=== PATIENT | male | born 1945 | race Caucasian/White ===

== ENCOUNTER → 2018-10-19 | Outpatient (CLI) | payer OTHER ==
[~2018-10-19] VITALS: Ht 152.4 cm; Wt 91.4 kg
[~2018-10-19] MED LIST: ALEVE220 MG PO; ASPIRIN325 PO; CENTRUM SILVER1 EAC2 PO; PRESERVISION A1 EAC2 PO; PROTONIX40 M2 PO; ZANTAC 150MG T150 M1 PO
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
[2018-10-19 13:02] VITALS: BP 144/84
== END | disposition home or self-care (01) ==
LOC: PAIN 08:07
DX: M54.12 Radiculopathy, cervical region (principal); G89.29 Other chronic pain; I48.91 Unspecified atrial fibrillation; Z88.2 Allergy status to sulfonamides; Z88.8 Allergy status to other drugs, medicaments and biological substances; Z98.41 Cataract extraction status, right eye; Z98.42 Cataract extraction status, left eye; Z96.1 Presence of intraocular lens; Z98.890 Other specified postprocedural states; Z79.01 Long term (current) use of anticoagulants

== ENCOUNTER → 2018-11-16 | Outpatient (CLI) | payer OTHER ==
[~2018-11-16] VITALS: Ht 182.9 cm; Wt 90.4 kg
--- NOTE | ~2018-11-16 | HPC ---
[facility] [address] [place] [address] PAIN MANAGEMENT CONSULTATION Name: LB ROGERS Room #: REG CHASIDY Preston#: [id number] Admission: 11/16/18 Attend Phys: Hi Martin MD Discharge: Date of : 43 Report #: [id number] THIS REPORT FOR: //name// CC: Juan C Martin DATE OF SERVICE: 11/16/2018 Followup visit for cervical radiculopathy, C3-C4. The patient has a cervical synovial cyst that extends into the canal and causes some nerve root irritation and radicular pain. The radicular symptoms are in the C3-C4 distribution, very concordant with the cyst. It is not the typical C5, C6, C7 that we see. The cyst is in a position where I feel that try trephination it or popping it might be of some challenge. I considered approaching the facet joint from a lateral approach and then attempting to "explode the cyst" or fill it full of volume to the point that it ruptured. This has been a technique used by interventional radiologist, although in the past, I found it in our hands to be less effective. We have trephinated some cysts in the lumbar region successfully; however, I am reluctant to do that here. His last cervical epidural injection provided complete relief for 2 weeks. Then, he was 75% for another week and has even improved today, but pain is returning. He will be leaving for [place] for his trip and will not be back for several months. He would like another injection. I think it is appropriate, we could hope that we might see him extended response and I would repeat the injection at C5-C6 as I did before. PQRS REVIEW: 1. Shows a history of osteoarthritis, although the patient remains very active and controls the pain well. Continues to golf. 2. BMI of 27 and fit. 3. Blood pressure 119/71, heart rate 76. 4. Pain intensity 6/10. 5. He is not a fall risk. 6. He is on no blood thinners. 7. No history of hypertension. 8, 9, 10 and 11. He is on no opioid medications and does not smoke and drinks alcohol only on social setting. IMPRESSION: Chronic cervicalgia, radiculopathy, left C4 distribution related to synovial cyst C3-C4. PROCEDURE: C5-C6 cervical epidural injection under fluoroscopic guidance. [address] [address] PAIN MANAGEMENT CONSULTATION Name: KENLB E Room #: REG CL Preston#: [id number] Admission: 11/16/18 Attend Phys: Hi Martin MD Discharge: Date of : 43 Report #: [id number] DESCRIPTION OF PROCEDURE: He was taken to fluoroscopic suite, placed prone, skin prepped with ChloraPrep over C5-C6. A 20-gauge Tuohy epidural needle advanced first attempt into the epidural space with loss of resistance. There was no blood or CSF aspirated. 1 mL of Omnipaque injected demonstrating excellent arthrogram. Medications spreading to both sides. It was followed by 3 mL of 0.5% lidocaine mixed with 80 mg of triamcinolone. He tolerated the procedure well and was taken to recovery room for observation. Follow up as needed. No medications were ordered. By: [id number] Hi Martin MD /nt
[2018-11-16 10:46] VITALS: BP 119/71
== END | disposition home or self-care (01) ==
LOC: PAIN 01:00
DX: M54.16 Radiculopathy, lumbar region (principal); M54.2 Cervicalgia; G89.29 Other chronic pain; M19.90 Unspecified osteoarthritis, unspecified site; Z88.2 Allergy status to sulfonamides; Z79.82 Long term (current) use of aspirin; Z79.899 Other long term (current) drug therapy

== ENCOUNTER → 2020-02-10 | Outpatient (CLI) | payer OTHER | LOC: SJCVC 09:55 | DX: R94.31 Abnormal electrocardiogram [ECG] [EKG] (principal); I48.21 Permanent atrial fibrillation; K21.9 Gastro-esophageal reflux disease without esophagitis; I50.32 Chronic diastolic (congestive) heart failure; E78.5 Hyperlipidemia, unspecified ==

== ENCOUNTER → 2021-02-12 | Outpatient (CLI) | payer OTHER | LOC: SJCVC 10:58 | PROVIDERS: ATTEND Internal Medicine | DX: R94.31 Abnormal electrocardiogram [ECG] [EKG] (principal); I48.21 Permanent atrial fibrillation; I50.32 Chronic diastolic (congestive) heart failure; E78.5 Hyperlipidemia, unspecified; K21.9 Gastro-esophageal reflux disease without esophagitis; D68.59 Other primary thrombophilia; Z79.899 Other long term (current) drug therapy; Z88.2 Allergy status to sulfonamides ==